=== PATIENT | female | born 1995 ===

== ENCOUNTER 2019-04-02 18:23 | Emergency (ER) | payer SELFPAY ==
[~2019-04-02] VITALS: Ht 161 cm; Wt 60.0 kg
[2019-04-02 18:29] VITALS: BP 132/90; TEMP 98.6
[2019-04-02 19:45] VITALS: PULSE 117
== END 2019-04-02 20:00 | disposition home or self-care (01) ==
LOC: COL.ER 18:23
DX: R06.02 Shortness of breath (principal)
CPT/HCPCS: J8540